=== PATIENT | male | born 1980 | race Two or more races ===

== ENCOUNTER 2022-07-02 10:52 | Emergency (ER) | payer MEDICAID ==
[~2022-07-02] VITALS: Ht 157.5 cm; Wt 64.0 kg
--- NOTE | 2022-07-02 11:10 | NUR ---
BIBS W/ C/O LEFT KNEE SWELLING, BRUISE AND PAIN 5/10 IN PS X1 WEEK, DENIES TRAUMA. TO ER BED 14.
[2022-07-02] MEDS ORDERED: IBUPROFEN 600 MG TABLET PO ONE (13:00)
[2022-07-02] MEDS ORDERED: IBUP-1955 PO (13:03)
[2022-07-02] MEDS ORDERED: IBUPROFEN 600 MG TABLET ONE (13:12)
--- NOTE | 2022-07-02 13:59 | NUR ---
Patient discharged to home in stable condition. Written and verbal after care instructions given. Patient verbalizes understanding of instruction.
[2022-07-02 14:14] VITALS: BP 129/77
== END 2022-07-02 14:00 | disposition home or self-care (01) ==
LOC: ER 10:54
DX: S80.02XA Contusion of left knee, initial encounter (principal); M70.42 Prepatellar bursitis, left knee; X58.XXXA Exposure to other specified factors, initial encounter; Y93.89 Activity, other specified; Y92.89 Other specified places as the place of occurrence of the external cause; Y99.8 Other external cause status
CPT/HCPCS: 73564-TC